=== PATIENT | female | born 1995 | race Caucasian/White ===

== ENCOUNTER → 2018-07-05 | Outpatient (CLI) | payer OTHER | LOC: ZCOL.LAB 16:43 | DX: J02.9 Acute pharyngitis, unspecified (principal) ==

== ENCOUNTER → 2019-03-24 | Outpatient (CLI) | payer OTHER ==
[2019-03-24 18:06] LABS: BASO % 0.1 % (0.0-2.0); EOS % 0.2 % (0-4.0); GRAN # 5.7 (1.4-6.5); GRAN % 70.3 % (42.2-75.2); LYMPH # 1.9 (1.2-3.4); LYMPH % 23.3 % (20.0-51.0); MEAN CELL VOLUME 91 fl (80.0-100.0); MEAN CORPUSCULAR HEMOGLOBIN 31 pg (27.0-31.0); MEAN CORPUSCULAR HGB CONC 34 g/dl (33.0-37.0); MEAN PLATELET VOLUME 10.7 fl (7.4-10.4); MONO # 0.5 (0.1-0.6); PLATELET COUNT 260 K/mm3 (130-400); RED BLOOD COUNT 4.18 M/mm3 (4.10-5.30); REDCELL DISTRIBUTION WIDTH-CV 12.2 % (11.5-14.5)
[2019-03-24 18:10] LABS: ALANINE AMINOTRANSFERASE 25 U/L (9-52); ALBUMIN 4.8 gm/dL (3.5-5.0); ALKALINE PHOSPHATASE 92 U/L (50-136); ANION GAP 12 mmol/L (7-16); AST,SGOT 20 U/L (15-37); BILIRUBIN,TOTAL 0.6 mg/dL (0.0-1.0); BLOOD UREA NITROGEN 8 mg/dL (7-17); CALCIUM 10.3 mg/dL (8.4-10.2); CARBON DIOXIDE 21 mmol/L (22-30); CHLORIDE 105 mmol/L (98-107); CREATININE, serum 0.63 (0.52-1.25); GLUCOSE 71 mg/dL (74-106); POTASSIUM 4.1 mmol/L (3.4-5.0); SODIUM 139 mmol/L (137-145); TOTAL PROTEIN 7.7 gm/dL (6.4-8.2)
[2019-03-24 18:12] LABS: C-REACTIVE PROTEIN < 0.5 mg/dL (0.0-0.9)
== END ==
LOC: ZCOL.LAB 17:51
DX: R10.9 Unspecified abdominal pain (principal)

== ENCOUNTER 2019-04-08 12:39 | Emergency (ER) | payer OTHER ==
[~2019-04-08] VITALS: Ht 157.5 cm; Wt 44.1 kg
[2019-04-08 12:43] VITALS: BP 109/72; TEMP 98.9
[2019-04-08] MEDS ORDERED: ENTYVIO INJ (12:48)
[2019-04-08] MEDS ORDERED: LEXAPRO 10MG10 MG PO (12:49)
[2019-04-08] MEDS ORDERED: NATURAL IRON65 MG PO (12:49)
[2019-04-08] MEDS ORDERED: DEPO-PROVE150 MG/1 M INJ (12:50)
[2019-04-08] MEDS ORDERED: KLONOPIN 0.5MG0.5 MG PO (12:50)
[2019-04-08] MEDS ORDERED: TOPAMAX 25MG25 M1 PO (12:51)
[2019-04-08 13:16] LABS: COLLECTION METHOD CLEAN CATCH
[2019-04-08 13:27] LABS: PH 6 (5-8); SQUAMOUS EPITHELIAL 0-2 /hpf; URINE APPEARANCE Clear; URINE BACTERIA None Seen /hpf; URINE BILIRUBIN Negative (NEGATIVE); URINE BLOOD 1+ (NEGATIVE); URINE COLOR Straw; URINE GLUCOSE Negative (NEGATIVE); URINE KETONE Negative (NEGATIVE); URINE LEUKOCYTE ESTERASE Negative (NEGATIVE); URINE NITRATE Negative (NEGATIVE); URINE PROTEIN(semi-quant) Negative (NEGATIVE); URINE RBC 0-2 /hpf; URINE UROBILINOGEN Negative (NEGATIVE)
[2019-04-08 14:04] LABS: BASO % 0.2 % (0.0-2.0); EOS # 0.1 (0.0-0.7); EOS % 0.9 % (0-4.0); GRAN # 6.2 (1.4-6.5); GRAN % 69.6 % (42.2-75.2); HEMATOCRIT 39.9 % (37.0-47.0); HEMOGLOBIN 13.7 g/dl (12.5-16.0); LYMPH # 2.1 (1.2-3.4); MEAN CELL VOLUME 91 fl (80.0-100.0); MEAN CORPUSCULAR HEMOGLOBIN 31 pg (27.0-31.0); MEAN CORPUSCULAR HGB CONC 34 g/dl (33.0-37.0); MONO # 0.5 (0.1-0.6); MONO % 5.1 % (1.7-9.3); PLATELET COUNT 271 K/mm3 (130-400); REDCELL DISTRIBUTION WIDTH-CV 12.2 % (11.5-14.5)
[2019-04-08 14:20] LABS: ALBUMIN 4.9 gm/dL (3.5-5.0); BILIRUBIN,TOTAL 0.6 mg/dL (0.0-1.0); CALCIUM 9.8 mg/dL (8.4-10.2); CREATININE, serum 0.85 (0.52-1.25); POTASSIUM 3.8 mmol/L (3.4-5.0)
[2019-04-08 14:49] LABS: TSH w REFLEX 0.733 uIU/mL (0.465-4.680)
[2019-04-08 15:45] VITALS: PULSE 78
== END 2019-04-08 15:50 | disposition home or self-care (01) ==
LOC: COL.ER 12:39
PROVIDERS: Physician Assistant
DX: R10.2 Pelvic and perineal pain (principal); K50.90 Crohn's disease, unspecified, without complications; F17.210 Nicotine dependence, cigarettes, uncomplicated; Z87.42 Personal history of other diseases of the female genital tract
CPT/HCPCS: J1885

== ENCOUNTER 2019-11-26 18:42 | Emergency (ER) | payer OTHER ==
[~2019-11-26] VITALS: Ht 157.5 cm; Wt 44.1 kg
[~2019-11-26 18:42] MED LIST: DEPO-PROVE150 MG/1 M INJ; ENTYVIO INJ; KLONOPIN 0.5MG0.5 MG PO; LEXAPRO 10MG10 MG PO; NATURAL IRON65 MG PO; TOPAMAX 25MG25 M1 PO
[2019-11-26 19:13] LABS: COLLECTION METHOD CLEAN CATCH
[2019-11-26 19:21] LABS: BASO % 0.1 % (0.0-2.0); EOS % 0.1 % (0-4.0); GRAN # 10.9 (1.4-6.5); GRAN % 75.3 % (42.2-75.2); HEMOGLOBIN 10.6 g/dl (12.5-16.0); LYMPH # 2.7 (1.2-3.4); LYMPH % 18.6 % (20.0-51.0); MEAN CELL VOLUME 94 fl (80.0-100.0); MEAN CORPUSCULAR HEMOGLOBIN 31 pg (27.0-31.0); MEAN CORPUSCULAR HGB CONC 33 g/dl (33.0-37.0); MEAN PLATELET VOLUME 10.1 fl (7.4-10.4); MONO # 0.8 (0.1-0.6); MONO % 5.7 % (1.7-9.3); PLATELET COUNT 257 K/mm3 (130-400); REDCELL DISTRIBUTION WIDTH-CV 12.7 % (11.5-14.5)
[2019-11-26 19:25] LABS: INR 1.3 (0.8-3.0); MUCOUS Present /lpf; PH 6 (5-8); PROTHROMBIN TIME 14.3 SECONDS (9.7-12.8); URINE APPEARANCE Clear; URINE BACTERIA None Seen /hpf; URINE BILIRUBIN Negative (NEGATIVE); URINE BLOOD 1+ (NEGATIVE); URINE COLOR Yellow; URINE GLUCOSE Negative (NEGATIVE); URINE KETONE 1+ (NEGATIVE); URINE LEUKOCYTE ESTERASE Negative (NEGATIVE); URINE NITRATE Negative (NEGATIVE); URINE PROTEIN(semi-quant) Negative (NEGATIVE); URINE UROBILINOGEN Negative (NEGATIVE)
[2019-11-26 19:36] LABS: ALBUMIN 3.9 gm/dL (3.5-5.0); BILIRUBIN,TOTAL 0.3 mg/dL (0.0-1.0); C-REACTIVE PROTEIN 1.4 mg/dL (0.0-0.9); CALCIUM 8.7 mg/dL (8.4-10.2); CREATININE, serum 0.72 (0.52-1.25); POTASSIUM 3.6 mmol/L (3.4-5.0); TOTAL PROTEIN 6.3 gm/dL (6.4-8.2)
[2019-11-26 22:20] VITALS: BP 144/70; PULSE 88; TEMP 97
== END 2019-11-26 22:20 ==
LOC: COL.ER 18:42
PROVIDERS: Family Medicine
DX: K92.2 Gastrointestinal hemorrhage, unspecified (principal); I47.1 Supraventricular tachycardia
CPT/HCPCS: J3010; J7120

== ENCOUNTER 2023-10-15 06:45 | Inpatient (IN) | payer OTHER ==
[~2023-10-15] VITALS: Ht 157.5 cm; Wt 65.9 kg
[2023-10-15] VITALS (35 sets, daily range): BP systolic 106–149; BP diastolic 60–89; PULSE 68–111; TEMP 98.5
[2023-10-15] MEDS ORDERED: LR & Oxytocin 500 ML IV SCH (14:15)
[2023-10-15] MEDS ORDERED: LR 1,000 ML IV SCH (14:15)
[2023-10-15] MEDS ORDERED: PRENATAL TABLET PO (14:28)
[2023-10-15] MEDS ORDERED: FERROUS SU325 MG/TAB PO (14:29)
--- NOTE | 2023-10-15 14:30 | NUR ---
1409- Pt arrives on unit ambulatory with spouse, Blas, for scheduled induction of labor. Pt escorted to LR3, oriented to room. 1417- Pt into bed, EFM and TOCO on and tracing. VSS. O2 sat monitor on and tracing maternal HR. Assessments completed. Pt denies VB/LOF/UCs. +FM per Pt. 1445- Consents explained and signed. IV started without difficulty, labs obtained. LR bolus, 500ml, initated. Explained IOL and questions answered. Pts room very warm despite termostat being turned way down. Maintenance called and onto unit at approx 1500. Unable to fix at this time. 1510- Pt and spouse escorted to LR6, strip transfered in OB traceview.
[2023-10-15 15:18] LABS: BASO % 0.1 % (0.0-2.0); EOS # 0.2 K/mm3 (0.0-0.7); EOS % 1.5 % (0.0-4.0); GRAN # 9.3 K/mm3 (1.4-6.5); GRAN % 76.7 % (42.2-75.2); HEMOGLOBIN 11.5 g/dl (12.5-16.0); LYMPH # 1.5 K/mm3 (1.2-3.4); LYMPH % 12.7 % (20.0-51.0); MEAN CELL VOLUME 93 fl (80.0-100.0); MEAN CORPUSCULAR HEMOGLOBIN 31 pg (27-31); MEAN CORPUSCULAR HGB CONC 33 g/dl (33.0-37.0); MEAN PLATELET VOLUME 10.6 fl (7.4-10.4); MONO # 0.9 K/mm3 (0.1-0.6); MONO % 7.6 % (1.7-9.3); PLATELET COUNT 223 K/mm3 (130-400); RED BLOOD COUNT 3.73 M/mm3 (4.10-5.30); REDCELL DISTRIBUTION WIDTH-CV 13.6 % (11.5-14.5)
[2023-10-15 15:21] LABS: HEMATOCRIT 34.5 % (37.0-47.0)
--- NOTE | 2023-10-15 15:35 | NUR ---
1535- Pt report given to Conner RN she assumes care at this time.
--- NOTE | 2023-10-15 17:50 | NUR ---
DR. BENSON AT BEDSIDE. FHR TRACING REVIEWED. PLAN OF CARE UPDATED. EPIDURAL REQUESTED BY PATIENT AT THIS TIME. AROM DISCUSSED WITH PATIENT AND PROVIDER PLANS TO WAIT UNTIL PATIENT IS COMFORTABLE AFTER EPIDURAL.
[2023-10-15] MEDS ORDERED: ROPivacaine PF 0.2% 200 ML IV ONE (18:28)
[2023-10-15] MEDS ORDERED: Naloxone 0.4 MG/ML VIAL IV PRN (19:00)
[2023-10-15] MEDS ORDERED: Ondansetron 4 MG/2 ML VIAL IV PRN (19:00)
[2023-10-15] MEDS ORDERED: diphenhydrAMINE 25 MG CAP PO PRN (19:00)
[2023-10-15] MEDS ORDERED: ePHEDrine 50 MG/10 ML VIAL IV PRN (19:00)
[2023-10-15] MEDS ORDERED: diphenhydrAMINE 50 MG/ML 1 ML VIAL IV PRN (19:00)
--- NOTE | 2023-10-15 19:39 | NUR ---
193- DR. BENSON AT BEDSIDE. AROM, CLEAR FLUID, SVE 5/100/0. 2044- RN AT BEDSIDE TO PLACE STEWART CATHETER, SMALL AMOUNT OF BLOOD NOTED IN CATHETER TUBING DUE TO RESISTANCE AT INSERTION. SVE 5-6/100/0.
--- NOTE | 2023-10-15 20:06 | NUR ---
183- ANESTHESIA TO BEDSIDE, PT SITTING UPRIGHT AT EDGE OF THE BED, FEET SUPPORTED ON STOOL. 1837- SINGLE SHOT 1839- PT REPOSITONED BACK IN BED. TOLERATED PROCEDURE WELL. MONITORS ADJUSTED.
--- NOTE | 2023-10-15 22:57 | NUR ---
2257- RN AT BEDSIDE, PT POSITIONED SUPINE FOR CERVICAL EXAM, SVE 6/100/0. PT HAS BEEN RESTING. PT FEELS SUPRAPUBIC PRESSURE BUT NO RECTAL PRESSURE. POSITION CHANGES NEEDED.
[2023-10-16] VITALS (16 sets, daily range): BP systolic 107–148; BP diastolic 58–80; PULSE 70–97; TEMP 97.6–98.7
--- NOTE | 2023-10-16 00:38 | NUR ---
0038- RN AT BEDSIDE, PT POSITIONED FOR CERVICAL EXAM. SVE BY KELLY CURIEL COMPLETE/100/+3. 0042- CALLED, SEE PHYSICIAN NOTIFICATION. 0055- STEWART CATHETER REMOVED WITHOUT DIFFICULTY. PT POSITIONED ON FOOTPLATES AND BEGINS COACHED PUSHING WITH CTX. 0101- DR. BENSON CALLED, SEE PHYSICIAN NOTIFICATION. 0105- DR. BENSON AT THE BEDSIDE FOR DELIVERY. 0121- SPONTANEOUS VAGINAL DELIVERY OF VIABLE MALE VIGORIOUS TO MOTHER ABDOMEN IN CARE OF NURSERY STAFF. 0124- SPONTANEOUS DELIVERY OF PLACENTA, EXAMINED BY DR. BENSON. REPAIR OF LABIAL AND PERINEAL LACERATIONS IN PROGRESS.
[2023-10-16] MEDS ORDERED: Loratadine 10 MG TAB PO PRN (02:00)
[2023-10-16] MEDS ORDERED: Magnes Hydrox (MOM) 80 MG/ML 30 ML CUP PO PRN (02:00)
[2023-10-16] MEDS ORDERED: Mag/Al Hydrox/Simeth Susp 30 ML CUP PO PRN (03:45)
[2023-10-16] MEDS ORDERED: Witch Hazel 50% Pads Bulk TUB TP PRN (03:45)
[2023-10-16] MEDS ORDERED: Phenylephrine/Mineral Oil/Petrolatum 57 GM TUBE RC PRN (03:45)
[2023-10-16] MEDS ORDERED: Measles/Mumps/Rubella Virus Vaccine Live w Diluent 0.5 ML VIAL SQ SCH (03:45)
[2023-10-16] MEDS ORDERED: oxyCODONE 5 MG TAB PO PRN (03:45)
[2023-10-16] MEDS ORDERED: Naloxone 0.4 MG/ML VIAL IV PRN (03:45)
[2023-10-16] MEDS ORDERED: Ibuprofen 800 MG TAB PO SCH (04:00)
[2023-10-16] MEDS ORDERED: Acetaminophen 500 MG TAB PO SCH ×2 (04:00→11:30)
--- NOTE | 2023-10-16 05:30 | NUR ---
0530- PT SITTING UP IN BED. EPIDURAL CATHETER REMOVED, CATHETER INTACT, BANDAID PLACED OVER INSERTION SITE. 0535- PT UP TO BATHROOM VIA SERASTE[facility]Y. PT WAS UNABLE TO VOID AT THIS TIME. BILLY CARE PROVIDED AND FRESH GOWN PUT ON PT. 0545- PT TRANSFERRED TO ROOM VIA [facility]ASTE[facility] WITH BELONGINGS AND BABY. ORIENTED TO ROOM AND EDUCATION MATERIALS.
[2023-10-16] MEDS ORDERED: MOTRIN 800800 MG/TAB PO (07:08)
[2023-10-16] MEDS ORDERED: Sennosides/Docusate 8.6-50 MG TAB PO SCH (08:00)
--- NOTE | 2023-10-16 10:31 | NUR ---
Initial visit; Dad spoke with Tray Line Worker as mom was Indisposed. Tray Line Worker offered congratulations and God's blessings for the of their son and mentioned that she hoped their stay here has been a good one to which he replied that they have been very happy with their stay here. thanked them for choosing [facility].
[2023-10-16] MEDS ORDERED: traZODone 50 MG TAB PO PRN (21:00)
[2023-10-17 07:51] VITALS: BP 130/71; PULSE 81; TEMP 98
--- NOTE | 2023-10-17 16:37 | NUR ---
1520 PT GIVEN BOTH WRITTEN AND VERBAL DISCHARGE INSTRUCTIONS. PT ENCOURAGED TO KEEP ALL FOLLOW UP APPOINTMENTS. PT VERBALIZES UNDERSTANDING AND HAS NO QUESTIONS AT THIS TIME.
== END 2023-10-17 15:20 | disposition home or self-care (01) | DRG 807 ==
LOC: OB 06:45 → LDR 14:02 → OB 10-16 05:45
PROVIDERS: ADMIT Obstetrics & Gynecology
PROC: 10E0XZZ Delivery of Products of Conception, External Approach (ICD-10-PCS; principal; 2023-10-16)
PROC: 0KQM0ZZ Repair Perineum Muscle, Open Approach (ICD-10-PCS; 2023-10-16)
PROC: 3E033VJ Introduction of Other Hormone into Peripheral Vein, Percutaneous Approach (ICD-10-PCS; 2023-10-16)
PROC: 0UQMXZZ Repair Vulva, External Approach (ICD-10-PCS; 2023-10-16)
PROC: 10907ZC Drainage of Amniotic Fluid, Therapeutic from Products of Conception, Via Natural or Artificial Opening (ICD-10-PCS; 2023-10-16)
DX: O48.0 Post-term pregnancy (principal); Z37.0 Single live birth; Z3A.40 40 weeks gestation of pregnancy; O99.02 Anemia complicating childbirth; D64.9 Anemia, unspecified; O69.81X0 Labor and delivery complicated by cord around neck, without compression, not applicable or unspecified; O70.1 Second degree perineal laceration during delivery; O77.0 Labor and delivery complicated by meconium in amniotic fluid
CPT/HCPCS: J2405; J2590; J2795; J7120